=== PATIENT | male | born 1995 | race Caucasian/White ===

== ENCOUNTER 2022-12-24 08:39 | Emergency (ER) | payer OTHER ==
[~2022-12-24] VITALS: Ht 165.1 cm; Wt 77.1 kg
[2022-12-24] MEDS ORDERED: MEDR4PAK PO (12:16)
[2022-12-24 12:29] VITALS: BP 126/67; TEMP 98.3; O2SAT 98
== END 2022-12-24 12:33 | disposition home or self-care (01) ==
LOC: M ED 08:39
DX: M54.31 Sciatica, right side (principal); M51.37 Other intervertebral disc degeneration, lumbosacral region; M51.27 Other intervertebral disc displacement, lumbosacral region